=== PATIENT | male | born 1955 | race American Indian/Alaskan Native ===

== ENCOUNTER 2017-06-16 11:51 | Observation (INO) | payer OTHER ==
[2017-06-16] MEDS ORDERED: Sodium Chloride 0.9% 1,000 ML IV ONE (12:30)
[2017-06-16] MEDS ORDERED: Labetalol 5 mg/ml Inj 20ML IV STA (12:31)
[2017-06-16] MEDS ORDERED: Labetalol 25mg/5ml Syringe ONE (12:40)
[2017-06-16 12:43] LABS: BASO % 0.6 % (0.0-2.0); EOS # 0.3 K/uL (0.0-0.7); EOS % 4.5 % (0.0-4.0); HEMOGLOBIN 14.7 g/dL (12.0-18.0); LYMPH # 3.2 K/uL (1.0-4.3); LYMPH % 43.4 % (20.0-40.0); MEAN CELL VOLUME 81.9 fL (80.0-94.0); MEAN CORPUSCULAR HEMOGLOBIN 28.4 pg (27.0-31.0); MEAN CORPUSCULAR HGB CONC 34.6 g/dL (33.0-37.0); MEAN PLATELET VOLUME 9.1 fL (7.2-11.7); MONO # 0.5 K/uL (0.0-0.8); MONO % 6.8 % (0.0-10.0); NEUT # 3.3 K/uL (1.8-7.0); NEUT % 44.7 % (50.0-75.0); NRBC % 0.1 % (0.0-2.0); RBC 5.18 Mil/uL (4.40-5.90); RED CELL DISTRIBUTION WIDTH 15.6 % (11.5-14.5); WHITE BLOOD COUNT 7.3 K/uL (4.8-10.8)
[2017-06-16 12:54] LABS: ALB/GLOB RATIO 1.2 (1.0-2.1); ALBUMIN 4.2 g/dL (3.5-5.0); ALT/SGPT 21 U/L (21-72); AST/SGOT 26 U/L (17-59); BLOOD UREA NITROGEN 14 mg/dL (9-20); CALCIUM 8.6 mg/dl (8.6-10.4); GFR AFRICAN-AMERICAN > 60; GFR NON-AFRICAN AMERICAN 51
--- NOTE | 2017-06-16 13:27 | C.PDOC ---
History Of Present Illness 61 y/o male, w/PMHx of HTN and diabetes, presents to the ER complaining of having dizziness for the past 2 days and not feeling well for the past 1 week. Patient states that he takes Metformin and Insulin for diabetes. He does not take any medications for his BP. He reports that he does not have a PMD. He is also complaining of mild lower abdominal discomfort which comes and goes for the past 1 week. Patient denies having headache, changes in vision, SOB, CP, palpitations, weakness, tingling, neurological deficits, and changes in bowel movement. Blood pressure on arrival is markedly elevated. Time Seen by Provider: 06/16/17 11:59 Chief Complaint (Nursing): Dizziness/Lightheaded History/Exam Limitations: no limitations Onset/Duration Of Symptoms: Days Current Symptoms Are (Timing): Still Present Severity: Moderate Past Medical History Reviewed: Historical Data, Nursing Documentation, Vital Signs Vital Signs: Last Vital Signs Temp 97.5 F L 06/16/17 12:02 Pulse 69 06/16/17 14:12 Resp 19 06/16/17 14:12 BP 184/100 H 06/16/17 14:12 Pulse Ox 98 06/16/17 14:31 - Medical History PMH: HTN Surgical History: No Surg Hx Family History: States: No Known Family Hx - Social History Hx Alcohol Use: Yes Hx Substance Use: No - Immunization History Hx Tetanus Toxoid Vaccination: No Hx Influenza Vaccination: No Hx Pneumococcal Vaccination: No Review Of Systems Except As Marked, All Systems Reviewed And Found Negative. Constitutional: Negative for: Fever, Chills Eyes: Negative for: Vision Change Cardiovascular: Negative for: Chest Pain, Palpitations Respiratory: Negative for: Shortness of Breath Gastrointestinal: Positive for: Abdominal Pain Genitourinary: Negative for: Dysuria, Frequency, Hematuria Neurological: Positive for: Dizziness. Negative for: Weakness, Headache Physical Exam - Physical Exam Appears: No Acute Distress, Other (extremely high BP) Skin: Normal Color, Warm Head: Atraumatic, Normacephalic Eye(s): bilateral: Normal Inspection Nose: Normal Oral Mucosa: Moist Neck: Supple Chest: Symmetrical Cardiovascular: Rhythm Regular Respiratory: Normal Breath Sounds, No Rales, No Rhonchi, No Wheezing Gastrointestinal/Abdominal: Normal Exam, Soft, No Tenderness, No Guarding, No Rebound Neurological/Psych: Oriented x3, Normal Speech ED Course And Treatment - Laboratory Results Result Diagrams: 06/16/17 12:38 06/16/17 12:38 Lab Interpretation: Abnormal (Glucose 260) ECG: Interpreted By Or ECG Rhythm: Sinus Rhythm (with LVH) ECG Interpretation: No Acute Changes O2 Sat by Pulse Oximetry: 98 (RA) Pulse Ox Interpretation: Normal - Radiology CXR: Interpreted by Or CXR Interpretation: Yes: No Acute Disease - CT Scan/US CT Head Other Rad Studies (CT/US): Read By Radiologist, Radiology Report Reviewed CT/US Interpretation: Accession No. : [id number]. Patient Name / ID : MAURY EASTMAN / [id number]. Exam Date : 06/16/2017 13:11:39 ( Approved ). Study Comment : Sex / Age : M / 61Y. Creator : Violette Bianchi. Dictator : Salty Francois MD. Facility Technician : Bee Producer : Salty Francois MD. Approver2 : Report Date : 06/16/2017 13:29:48. My Comment : . PROCEDURE: CT HEAD WITHOUT CONTRAST. HISTORY: R/O Bleed. COMPARISON: None available. TECHNIQUE: Axial computed tomography images were obtained through the head/ brain without intravenous contrast. Radiation dose: Total exam DLP = 841.85 mGy-cm. This CT exam was performed using one or more of the following dose reduction techniques: Automated exposure control, adjustment of the mA and/or kV according to patient size, and/or use of iterative reconstruction technique. FINDINGS: HEMORRHAGE: No intracranial hemorrhage. BRAIN: Normal jones- white matter differentiation and density are appreciated throughout the cerebrum and cerebellum with the brainstem appearing unremarkable as well. There is no mass effect. There is no suspicious extra-axial fluid collection and the midline brain anatomy appears diffusely unremarkable. Limited falcine calcification noted anteriorly. VENTRICLES: Unremarkable. No hydrocephalus. CALVARIUM: Unremarkable. PARANASAL SINUSES: Unremarkable as visualized. No significant inflammatory changes. MASTOID AIR CELLS: Unremarkable as visualized. No inflammatory changes. OTHER FINDINGS: None. IMPRESSION: Unremarkable unenhanced CT of the Head. Reevaluation Time: 14:31 Reassessment Condition: Improved - Physician Consult Information Time Consulting Physician Contacted: 14:31 Outcome Of Conversation: Hospitalist Dr Stacy contacted. Patient to be kept on observation for hypertensive urgency with uncontrolled diabetes. Medical Decision Making Medical Decision Making: Plan: --Labs --UA --ECG --CXR --CT- Head --IV Fluids -- Trandate IV Disposition - Disposition Disposition: HOSPITALIZED Disposition Time: 14:38 Condition: IMPROVED - POA Present On Arrival: Poor Glycemic Control - Clinical Impression Clinical Impression: Hypertensive urgency, Uncontrolled diabetes mellitus - Scribe Statement The provider has reviewed the documentation as recorded by the Ellie Cid Provider Attestation: All medical record entries made by the Scribe were at my direction and personally dictated by me. I have reviewed the chart and agree that the record accurately reflects my personal performance of the history, physical exam, medical decision making, and the department course for this patient. I have also personally directed, reviewed, and agree with the discharge instructions and disposition.
--- NOTE | 2017-06-16 13:42 | CT ---
PROCEDURE: CT HEAD WITHOUT CONTRAST. HISTORY: R/O Bleed COMPARISON: None available. TECHNIQUE: Axial computed tomography images were obtained through the head/brain without intravenous contrast. Radiation dose: Total exam DLP = 841.85 mGy-cm. This CT exam was performed using one or more of the following dose reduction techniques: Automated exposure control, adjustment of the mA and/or kV according to patient size, and/or use of iterative reconstruction technique. FINDINGS: HEMORRHAGE: No intracranial hemorrhage. BRAIN: Normal jones-white matter differentiation and density are appreciated throughout the cerebrum and cerebellum with the brainstem appearing unremarkable as well. There is no mass effect. There is no suspicious extra-axial fluid collection and the midline brain anatomy appears diffusely unremarkable. Limited falcine calcification noted anteriorly. VENTRICLES: Unremarkable. No hydrocephalus. CALVARIUM: Unremarkable. PARANASAL SINUSES: Unremarkable as visualized. No significant inflammatory changes. MASTOID AIR CELLS: Unremarkable as visualized. No inflammatory changes. OTHER FINDINGS: None. IMPRESSION: Unremarkable unenhanced CT of the Head.
--- NOTE | 2017-06-16 14:28 | RAD ---
PROCEDURE: CHEST RADIOGRAPH, 1 VIEW HISTORY: SOB COMPARISON: None available. FINDINGS: LUNGS: Clear. PLEURA: No pneumothorax or pleural fluid seen. CARDIOVASCULAR: Cardiomegaly. No evidence of acute, significant cardiovascular disease. OSSEOUS STRUCTURES: No significant abnormalities. VISUALIZED UPPER ABDOMEN: Normal. OTHER FINDINGS: None. IMPRESSION: No active disease.
--- NOTE | 2017-06-16 15:11 | CP.PCM.HP ---
History of Present Illness - History of Present Illness History of Present Illness: Patient was seen and examined at approximately 3:30PM in ED bed 14. Patient is currently a FULL CODE STATUS at this time. His emergency contact is Brittany Peterson (). She can be reached at [phone]. CC: Dizziness HPI: 61 year old male with past medical history significant for HTN and DM presents with complaints of dizziness which he has been experiencing the past 2 days. Patient states that he sometimes feels the dizziness at rest, while other times with activity. He states that he does not have a regular doctor that he follows with. He is aware that he has elevated blood pressure, but has not been able to take any medication for it at this time due to cost. He states that he has also been experiencing urinary discomfort since three weeks earlier after engaging in unprotected intercourse with his "girlfriend". Patient states that there has been no other person involved. He admits to dysuria. He denies chest pain, palpitations, visual changes or disturbances, headaches, nausea, vomiting, diarrhea, leg pain, swelling, discharge, lesions, rashes, dyspareunia or urinary urgency at this time. PMHx- as stated above PSHx- Denies Fam Hx- One brother has DM; Another brother has HTN Meds- Insulin 70/30 ( 20 units in the AM and 20 units at night), Metformin 500 mg PO BID Social Hx- Denies tobacco, alcohol or drug use Allergies- NKDA PMD- He visited one doctor in [place] approximately 1 month ago; He states that he does not follow with this provider regularly. ( Unclear name and spelling) Present on Admission - Present on Admission Any Indicators Present on Admission: No Review of Systems - Constitutional Constitutional: absent: Daytime Sleepiness, Excessive Sweating - EENT Eyes: absent: Blurred Vision, Change in Vision Ears: absent: Decreased Hearing, Ear Discharge Nose/Mouth/Throat: absent: Nasal Discharge, Tongue Swelling - Cardiovascular Cardiovascular: absent: Chest Pain, Chest Pain at Rest, Chest Pain with Activity , Dyspnea - Respiratory Respiratory: absent: Dyspnea, Dyspnea on Exertion, Chest Congestion - Gastrointestinal Gastrointestinal: absent: Nausea, Vomiting - Genitourinary Genitourinary: Dysuria. absent: Change in Urinary Stream, Difficulty Urinating , Hematuria, Urinary Frequency - Reproductive: Male Reproductive:Male: As Per HPI - Musculoskeletal Musculoskeletal: absent: Back Pain, Numbness - Integumentary Integumentary: absent: Change in Hair, Dry Skin - Neurological Neurological: Dizziness. absent: Weakness Past Patient History - Past Social History Smoking Status: Never Smoked Alcohol: None Drugs: Denies - CARDIAC Hx Hypertension: Yes - ENDOCRINE/METABOLIC Hx Diabetes Mellitus Type 1: Yes - PSYCHIATRIC Hx Substance Use: No - SURGICAL HISTORY Hx Surgeries: No - ANESTHESIA Hx Anesthesia: No Meds Allergies/Adverse Reactions: Allergies Allergy/AdvReac Type Severity Reaction Status Date / Time No Known Allergies Allergy Verified 06/16/17 12:05 Physical Exam - Constitutional Appears: No Acute Distress - Head Exam Head Exam: ATRAUMATIC, NORMAL INSPECTION, NORMOCEPHALIC - Eye Exam Eye Exam: EOMI. absent: Periorbital swelling, Periorbital tenderness Pupil Exam: NORMAL ACCOMODATION Additional comments: limited posterior chamber of the eye exam due to lighting of environment - ENT Exam ENT Exam: Mucous Membranes Moist - Neck Exam Neck exam: Positive for: Full Rom - Respiratory Exam Respiratory Exam: NORMAL BREATHING PATTERN. absent: Wheezes - Cardiovascular Exam Cardiovascular Exam: +S1, +S2. absent: Tachycardia, JVD - GI/Abdominal Exam GI & Abdominal Exam: Normal Bowel Sounds, Soft. absent: Tenderness - Extremities Exam Extremities exam: Positive for: full ROM, normal capillary refill, pedal pulses present. Negative for: pedal edema, tenderness - Back Exam Back exam: FULL ROM - Neurological Exam Neurological exam: Alert, Oriented x3, Reflexes Normal - Psychiatric Exam Psychiatric exam: Normal Affect, Normal Mood - Skin Skin Exam: Dry, Normal Color, Warm Results - Vital Signs Recent Vital Signs: Last Vital Signs Temp 97.5 F L 06/16/17 12:02 Pulse 58 L 06/16/17 15:05 Resp 16 06/16/17 15:05 BP 208/102 H 06/16/17 15:05 Pulse Ox 99 06/16/17 15:05 - Labs Result Diagrams: 06/16/17 12:38 06/16/17 12:38 Labs: Laboratory Results - last 24 hr 06/16/17 06/16/17 06/16/17 11:57 12:38 12:38 WBC 7.3 RBC 5.18 Hgb 14.7 Hct 42.5 MCV 81.9 MCH 28.4 MCHC 34.6 RDW 15.6 H Plt Count 192 MPV 9.1 Neut % (Auto) 44.7 L Lymph % (Auto) 43.4 H [place] % (Auto) 6.8 Eos % (Auto) 4.5 H Baso % (Auto) 0.6 Neut # (Auto) 3.3 Lymph # (Auto) 3.2 [place] # (Auto) 0.5 Eos # (Auto) 0.3 Baso # (Auto) 0.0 Sodium 138 Potassium 4.1 Chloride 101 Carbon Dioxide 23 Anion Gap 18 BUN 14 Creatinine 1.4 Est GFR ( Amer) > 60 Est GFR (Non-Af Amer) 51 POC Glucose (mg/dL) 259 H Random Glucose 268 H Calcium 8.6 Total Bilirubin 0.8 AST 26 ALT 21 Alkaline Phosphatase 130 H Troponin I < 0.0120 Total Protein 7.7 Albumin 4.2 Globulin 3.6 Albumin/Globulin Ratio 1.2 06/16/17 14:32 WBC RBC Hgb Hct MCV MCH MCHC RDW Plt Count MPV Neut % (Auto) Lymph % (Auto) [place] % (Auto) Eos % (Auto) Baso % (Auto) Neut # (Auto) Lymph # (Auto) [place] # (Auto) Eos # (Auto) Baso # (Auto) Sodium Potassium Chloride Carbon Dioxide Anion Gap BUN Creatinine Est GFR ( Amer) Est GFR (Non-Af Amer) POC Glucose (mg/dL) 207 H Random Glucose Calcium Total Bilirubin AST ALT Alkaline Phosphatase Troponin I Total Protein Albumin Globulin Albumin/Globulin Ratio Assessment & Plan (1) Hypertensive urgency Assessment and Plan: Patient with history of HTN though not on any active medications at home. Given Labetalol IV in he ER Given Hydralazine Stat dose in ER On Zestril 5 mg and Norvasc 5 mg PO daily For the first 24-48 hours, goal BP of 180/95. If higher, may administer PRN Hydralazine dosing Continue to monitor On telemetry EKG- NSR though may be showing signs of chronic LVH F/U Echo Status: Acute (2) Dizziness Assessment and Plan: No visual changes noted Head CT negative for intracranial bleed. F/U Brain MRI to rule out cerebellar bleed. Once negative, can begin chemical anticoagulation for DVT prophylaxis Meclizine Q12 PRN Status: Acute (3) Diabetes mellitus Assessment and Plan: Accuchecks F/U Hgb A1c ISS Metformin 500 mg PO BID Status: Chronic (4) Dysuria Assessment and Plan: F/U UA and UC F/U RPR, HIV, GC/Chlamydia studies Status: Acute (5) Prophylactic measure Assessment and Plan: SCDS GI Prophylaxis not indicated Hold Chemical Anticoagulation until Cerebellar Bleed is ruled out. Status: Acute
[2017-06-16 16:32] LABS: SQUAMOUS EPITHIAL < 1 /hpf (0-5); URINE BILIRUBIN NEGATIVE (NEGATIVE); URINE BLOOD NEGATIVE (NEGATIVE); URINE CLARITY Clear (Clear); URINE COLOR Yellow (YELLOW); URINE GLUCOSE (UA) 3+ mg/dL (Normal); URINE LEUKOCYTE ESTERASE NEG Leu/uL (Negative); URINE PROTEIN 1+ mg/dL (NEGATIVE); URINE UROBILINOGEN NORMAL mg/dL (0.2-1.0)
[2017-06-16] MEDS: (Novolog) Insulin Aspart, Recombinant 100 u/ml 10 ml vial SC SCH (21:57)
[2017-06-17 06:34] LABS: BASO # 0.1 K/uL (0.0-0.2); BASO % 0.9 % (0.0-2.0); EOS # 0.4 K/uL (0.0-0.7); EOS % 5.7 % (0.0-4.0); HEMOGLOBIN 14.2 g/dL (12.0-18.0); LYMPH # 2.1 K/uL (1.0-4.3); LYMPH % 33.3 % (20.0-40.0); MEAN CELL VOLUME 81.5 fL (80.0-94.0); MEAN CORPUSCULAR HEMOGLOBIN 27.8 pg (27.0-31.0); MEAN CORPUSCULAR HGB CONC 34.1 g/dL (33.0-37.0); MEAN PLATELET VOLUME 8.5 fL (7.2-11.7); MONO # 0.4 K/uL (0.0-0.8); MONO % 7.1 % (0.0-10.0); NEUT # 3.4 K/uL (1.8-7.0); RBC 5.13 Mil/uL (4.40-5.90); RED CELL DISTRIBUTION WIDTH 15.2 % (11.5-14.5); WHITE BLOOD COUNT 6.3 K/uL (4.8-10.8)
[2017-06-17] MEDS: (Novolog) Insulin Aspart, Recombinant 100 u/ml 10 ml vial SC SCH (09:14)
[2017-06-17] MEDS ORDERED: (Novolog) Insulin Aspart, Recombinant 100 u/ml 10 ml vial SC SCH (11:30)
--- NOTE | 2017-06-17 13:33 | MRI ---
PROCEDURE: MRI BRAIN WITHOUT CONTRAST HISTORY: Dizziness, rule out cerebellar stroke COMPARISON: Noncontrast head CT from 06/16/2017 TECHNIQUE: Multiplanar, multisequence MR images of the brain were obtained without intravenous contrast enhancement. FINDINGS: HEMORRHAGE: None DWI: No evidence of an acute or early subacute infarction. BRAIN PARENCHYMA: There are mild chronic microangiopathic changes. There is no mass, mass effect or abnormal extra-axial fluid collection. There is no territorial infarction. The midline sagittal structures are normal. VENTRICLES: There is mild age-related global parenchymal volume loss and proportionate enlargement of the ventricles and cortical sulci. CRANIUM: There is normal bone marrow signal pattern. ORBITS: Grossly unremarkable. PARANASAL SINUSES/MASTOIDS: Predominantly clear. VASCULAR SYSTEM: There are normal signal voids in the larger intracranial arteries. OTHER FINDINGS: None. IMPRESSION: No acute intracranial abnormality. Mild chronic microangiopathic changes and mild age-related global parenchymal volume loss.
[2017-06-17 13:59] VITALS: BP 198/104; RESP 18; TEMP 98.1; O2SAT 99
--- NOTE | 2017-06-17 14:04 | CP.PCM.DIS ---
Provider - Provider Date of Admission: 06/16/17 14:39 Attending physician: Lydia Stacy MD Primary care physician: none Consults: none Time Spent in preparation of Discharge (in minutes): 45 Hospital Course - Lab Results Lab Results: Most Recent Lab Values WBC 6.3 K/uL (4.8-10.8) 06/17/17 06:25 RBC 5.13 Mil/uL (4.40-5.90) 06/17/17 06:25 Hgb 14.2 g/dL (12.0-18.0) 06/17/17 06:25 Hct 41.8 % (35.0-51.0) 06/17/17 06:25 MCV 81.5 fL (80.0-94.0) 06/17/17 06:25 MCH 27.8 pg (27.0-31.0) 06/17/17 06:25 MCHC 34.1 g/dL (33.0-37.0) 06/17/17 06:25 RDW 15.2 % (11.5-14.5) H 06/17/17 06:25 Plt Count 187 K/uL (130-400) 06/17/17 06:25 MPV 8.5 fL (7.2-11.7) 06/17/17 06:25 Neut % (Auto) 53.0 % (50.0-75.0) 06/17/17 06:25 Lymph % (Auto) 33.3 % (20.0-40.0) 06/17/17 06:25 [place] % (Auto) 7.1 % (0.0-10.0) 06/17/17 06:25 Eos % (Auto) 5.7 % (0.0-4.0) H 06/17/17 06:25 Baso % (Auto) 0.9 % (0.0-2.0) 06/17/17 06:25 Neut # (Auto) 3.4 K/uL (1.8-7.0) 06/17/17 06:25 Lymph # (Auto) 2.1 K/uL (1.0-4.3) 06/17/17 06:25 [place] # (Auto) 0.4 K/uL (0.0-0.8) 06/17/17 06:25 Eos # (Auto) 0.4 K/uL (0.0-0.7) 06/17/17 06:25 Baso # (Auto) 0.1 K/uL (0.0-0.2) 06/17/17 06:25 Sodium 138 mmol/L (132-148) 06/16/17 12:38 Potassium 4.1 mmol/L (3.6-5.2) 06/16/17 12:38 Chloride 101 mmol/L (98-107) 06/16/17 12:38 Carbon Dioxide 23 mmol/L (22-30) 06/16/17 12:38 Anion Gap 18 (10-20) 06/16/17 12:38 BUN 14 mg/dL (9-20) 06/16/17 12:38 Creatinine 1.4 mg/dL (0.8-1.5) 06/16/17 12:38 Est GFR ( Amer) > 60 06/16/17 12:38 Est GFR (Non-Af Amer) 51 06/16/17 12:38 POC Glucose (mg/dL) 313 mg/dL (65-110) H 06/17/17 12:19 Random Glucose 268 mg/dL (75-110) H 06/16/17 12:38 Hemoglobin A1c 9.6 % (4.2-6.5) H 06/17/17 06:25 Calcium 8.6 mg/dl (8.6-10.4) 06/16/17 12:38 Phosphorus 2.9 mg/dL (2.5-4.5) 06/17/17 06:25 Magnesium 1.9 mg/dL (1.6-2.3) 06/17/17 06:25 Total Bilirubin 0.8 mg/dL (0.2-1.3) 06/16/17 12:38 AST 26 U/L (17-59) 06/16/17 12:38 ALT 21 U/L (21-72) 06/16/17 12:38 Alkaline Phosphatase 130 U/L (38-126) H 06/16/17 12:38 Troponin I < 0.0120 ng/mL (0.00-0.120) 06/16/17 12:38 Total Protein 7.7 g/dL (6.3-8.3) 06/16/17 12:38 Albumin 4.2 g/dL (3.5-5.0) 06/16/17 12:38 Globulin 3.6 gm/dL (2.2-3.9) 06/16/17 12:38 Albumin/Globulin Ratio 1.2 (1.0-2.1) 06/16/17 12:38 Triglycerides 275 mg/dL (0-149) H 06/17/17 06:25 Cholesterol 176 mg/dL (0-199) 06/17/17 06:25 LDL Cholesterol Direct 109 mg/dL (0-129) 06/17/17 06:25 HDL Cholesterol 24 mg/dL (30-70) L 06/17/17 06:25 Free T4 1.27 ng/dL (0.78-2.19) 06/17/17 06:25 TSH 3rd Generation 2.21 mIU/L (0.46-4.68) 06/17/17 06:25 Urine Color Yellow (YELLOW) 06/16/17 16:00 Urine Clarity Clear (Clear) 06/16/17 16:00 Urine pH 6.0 (5.0-8.0) 06/16/17 16:00 Ur Specific [place] 1.010 (1.003-1.030) 06/16/17 16:00 Urine Protein 1+ mg/dL (NEGATIVE) H 06/16/17 16:00 Urine Glucose (UA) 3+ mg/dL (Normal) H 06/16/17 16:00 Urine Ketones Negative mg/dL (NEGATIVE) 06/16/17 16:00 Urine Blood Negative (NEGATIVE) 06/16/17 16:00 Urine Nitrate Negative (NEGATIVE) 06/16/17 16:00 Urine Bilirubin Negative (NEGATIVE) 06/16/17 16:00 Urine Urobilinogen Normal mg/dL (0.2-1.0) 06/16/17 16:00 Ur Leukocyte Esterase Neg [place]/uL (Negative) 06/16/17 16:00 Urine WBC (Auto) 1 /hpf (0-5) 06/16/17 16:00 Urine RBC (Auto) 1 /hpf (0-3) 06/16/17 16:00 Ur Squamous Epith Cells < 1 /hpf (0-5) 06/16/17 16:00 RPR Nonreactive (NONREACTIVE) 06/16/17 19:37 HIV 1&2 Antibody Screen Negative (NEGATIVE) 06/16/17 19:37 - Hospital Course Hospital Course: CC: Dizziness HPI: 61 year old male with past medical history significant for HTN and DM presents with complaints of dizziness which he has been experiencing the past 2 days. Patient states that he sometimes feels the dizziness at rest, while other times with activity. He states that he does not have a regular doctor that he follows with. He is aware that he has elevated blood pressure, but has not been able to take any medication for it at this time due to cost. He states that he has also been experiencing urinary discomfort since three weeks earlier after engaging in unprotected intercourse with his "girlfriend". Patient states that there has been no other person involved. He admits to dysuria. He denies chest pain, palpitations, visual changes or disturbances, headaches, nausea, vomiting, diarrhea, leg pain, swelling, discharge, lesions, rashes, dyspareunia or urinary urgency at this time. Hospital Course: patient came in hypertensive urgency complaining of dizziness. Had CT head at that time that was negative. Had MRI the following day that was negative. Patient was not on any medications at home. Was started on norvasc 10 , lisinopril 20 and chlorathidone 12.5. Bp was controlled and was asked to follow up in clinic. He had an echo while he was here that showed an EF >70% with no abnormalities. Needs to follow up for tailoring of the medications he was started on in the hospital. Was also discharged on antivert for his dizziness. Discharge Exam - Head Exam Head Exam: ATRAUMATIC, NORMAL INSPECTION, NORMOCEPHALIC - Eye Exam Eye Exam: EOMI, Normal appearance, PERRL Pupil Exam: NORMAL ACCOMODATION, PERRL - Respiratory Exam Respiratory Exam: Clear to PA & Lateral, UNREMARKABLE - Cardiovascular Exam Cardiovascular Exam: REGULAR RHYTHM - GI/Abdominal Exam GI & Abdominal Exam: Normal Bowel Sounds - Neurological Exam Neurological exam: Alert, CN II-XII Intact, Normal Gait, Oriented x3, Reflexes Normal - Psychiatric Exam Psychiatric exam: Normal Affect, Normal Mood - Skin Skin Exam: Dry, Intact, Normal Color, Warm Discharge Plan - Discharge Medications Prescriptions: Atorvastatin Calcium 20 mg PO HS #30 tablet Chlorthalidone [Hygroton] 12.5 mg PO HS 30 Days tab Lisinopril [Zestril] 20 mg PO DAILY #30 tab Meclizine [Antivert] 12.5 mg PO Q12 PRN #60 tab PRN Reason: Dizziness Simethicone [Mylicon Chew Tab] 80 mg PO TID #90 chew - Follow Up Plan Condition: IMPROVED Disposition: HOME/ ROUTINE Instructions: Diabetes Exchange Diet, DASH Diet, High Blood Pressure (DC), Diabetic Meal Planning , Diabetes and Diet, Diabetes in Older Adults, Hypertension (GEN), Hypertension (DC) Additional Instructions: Please take the prescriptions I have provided for you on discharge. The nurse will provide you with a detailed list of medications to take and when to take them Please follow with Dr. Fried in the [facility] clinic tomorrow. Just walk in. You do not need to make an appointment. Referrals: [facility] [Outside]
[2017-06-17 17:16] VITALS: PULSE 91
--- NOTE | 2017-06-17 17:50 | CARD ---
APPROVED REPORT EXAM: Two-dimensional and M-mode echocardiogram with Doppler and color Doppler. Other Information Quality : GoodRhythm : INDICATION Dizziness and Vertigo RISK FACTORS Hypertension Diabetes 2D DIMENSIONS IVSd1.3 (0.7-1.1cm)LVDd3.9 (3.9-5.9cm) PWd1.3 (0.7-1.1cm)LVDs1.8 (2.5-4.0cm) FS (%) 53.1 %LVEF (%)70.0 (>50%) M-Mode DIMENSIONS Left Atrium (MM)3.44 (2.5-4.0cm)Aortic Root3.42 (2.2-3.7cm) Aortic Cusp Exc.1.97 (1.5-2.0cm) Mitral Valve MV E Nnmtohrb26.4cm/sMV A Xhojgxog591.8cm/sE/A ratio0.7 TDI E/Lateral E'0.0E/Medial E'0.0 LEFT VENTRICLE There is mild concentric left ventricular hypertrophy. Left ventricle systolic function is normal. The Ejection Fraction is >70%. There is normal LV segmental wall motion. The left ventricular diastolic function is abnormal- Grade I-abnormal relaxation pattern. No left ventricle thrombus noted on this study. RIGHT VENTRICLE The right ventricle is normal size. The right ventricular systolic function is normal. ATRIA The left atrium size is normal. The right atrium size is normal. AORTIC VALVE The aortic valve is mildly thickened. The aortic valve is trileaflet. No aortic regurgitation is present. There is no aortic valvular stenosis. There is no aortic valvular vegetation. MITRAL VALVE Mitral annular calcification is mild. There is no evidence of mitral valve prolapse. There is no mitral valve stenosis. There is no mitral valve regurgitation noted. TRICUSPID VALVE The tricuspid valve is normal in structure. There is no tricuspid valve regurgitation noted. There is no tricuspid valve prolapse or vegetation. There is no tricuspid valve stenosis. PULMONIC VALVE The pulmonary valve is normal in structure. There is no pulmonic valvular regurgitation. There is no pulmonic valvular stenosis. GREAT VESSELS The aortic root is normal in size. The IVC is normal in size and collapses >50% with inspiration. PERICARDIAL EFFUSION There is no pericardial effusion. There is no pleural effusion. <Conclusion> There is mild concentric left ventricular hypertrophy. Left ventricle systolic function is normal. The Ejection Fraction is >70%. The left ventricular diastolic function is abnormal- Grade I-abnormal relaxation pattern. The right ventricle is normal size. The right ventricular systolic function is normal. The left atrium size is normal. The right atrium size is normal.
[2017-06-17] MEDS ORDERED: Simethicone 80 mg Chewtab PO SCH (18:00)
--- NOTE | 2017-06-18 00:01 | CARD ---
APPROVED REPORT EKG Measurement Heart [id number] <Conclusion> Normal sinus rhythm Voltage criteria for left ventricular hypertrophy Abnormal ECG
[2017-06-18] MEDS ORDERED: Pneumococcal 23-Valent Vaccine IM ONE (12:00)
== END 2017-06-17 16:45 | disposition home or self-care (01) ==
LOC: C.ER 11:51 → C.9E 14:39 → C.6T 15:50
PROVIDERS: ADMIT Internal Medicine; ATTEND Internal Medicine
DX: I16.0 Hypertensive urgency (principal); E11.65 Type 2 diabetes mellitus with hyperglycemia; R42 Dizziness and giddiness; I10 Essential (primary) hypertension; Z79.4 Long term (current) use of insulin
CPT/HCPCS: 36415; 70450; 70551; 71045; 80053; 80061; 81001; 82948; 83036; 83735; 84100; 84439; 84443; 84484; 85025; 86592; 86703; 87086; 93306; 96374; 99285; G0378; J0360